=== PATIENT | female | born 1965 | race Caucasian/White ===

== ENCOUNTER 2020-10-24 04:39 | Emergency (ER) | payer OTHER ==
[~2020-10-24] VITALS: Ht 165.1 cm; Wt 67.1 kg
[~2020-10-24 04:39] MED LIST: ADVAIR 5001 DISK W/1 IH; ALBUTEROL17 G1; ALBUTEROL17 G1 IH; ALBUTEROL2.5 MG/3 M IH; ATIVAN0.5 MG; CLONAZEPAM 1MG TAB PO; CLONAZEPAM1 GM; CLONAZEPAM2 MG; LEVAQUIN750 MG PO; LODINE; MEDROLPACK PO; MUCINEX600 MG PO; PARAFON FORTE500 MG PO; PNEU16DI2; PROTONIX40 MG PO; Pulmicort 0.5 MG/2 M IH; SYMBICORT 16010.2 GM; SYMBICORT 16010.2 GM IH; Seroquel PO
== END 2020-10-24 07:43 | disposition home or self-care (01) ==
LOC: ER 04:39
DX: R06.02 Shortness of breath (principal)

== ENCOUNTER → 2021-01-28 | Emergency (ER) | payer OTHER ==
[~2021-01-28] VITALS: Ht 152.4 cm; Wt 63.5 kg
== END | disposition left against medical advice (07) ==
LOC: ER 03:36
DX: J45.901 Unspecified asthma with (acute) exacerbation (principal); R06.02 Shortness of breath; F17.210 Nicotine dependence, cigarettes, uncomplicated; Z03.818 Encounter for observation for suspected exposure to other biological agents ruled out

== ENCOUNTER 2021-04-14 06:05 | Emergency (ER) | payer OTHER ==
[~2021-04-14] VITALS: Ht 165.1 cm; Wt 68.0 kg
== END 2021-04-14 11:38 | disposition home or self-care (01) ==
LOC: ER 06:05
DX: J44.0 Chronic obstructive pulmonary disease with (acute) lower respiratory infection (principal); J40 Bronchitis, not specified as acute or chronic; Z20.822 Contact with and (suspected) exposure to COVID-19; J45.998 Other asthma

== ENCOUNTER → 2021-04-16 | Emergency (ER) | payer OTHER ==
[~2021-04-16] VITALS: Ht 167.6 cm; Wt 65.3 kg
== END | disposition left against medical advice (07) ==
LOC: ER 17:52
DX: R06.02 Shortness of breath (principal); R42 Dizziness and giddiness; B96.0 Mycoplasma pneumoniae [M. pneumoniae] as the cause of diseases classified elsewhere; J45.901 Unspecified asthma with (acute) exacerbation; Z53.29 Procedure and treatment not carried out because of patient's decision for other reasons

== ENCOUNTER 2021-08-13 08:04 | Emergency (ER) | payer OTHER ==
[~2021-08-13] VITALS: Ht 165.1 cm; Wt 65.8 kg
== END 2021-08-13 11:47 | disposition left against medical advice (07) ==
LOC: ER 08:04
DX: J45.909 Unspecified asthma, uncomplicated (principal); R53.81 Other malaise